=== PATIENT | female | born 1985 | race Caucasian/White ===

== ENCOUNTER 2017-08-07 08:38 | Emergency (ER) | payer BC ==
[2017-08-07] MEDS: SOD CHLORIDE 0.9% 1,000 ML IV (13:45)
[2017-08-07] MEDS: ONDANSETRON 4 MG INJ IV ×2 (13:45→14:00)
[2017-08-07] MEDS: LORAZEPAM 2 MG INJ IV (13:45)
[2017-08-07 13:53] LABS: ADD MAN DIFF? NO
[2017-08-07] MEDS: HYDROmorphONE 1 MG/ML SYG IV (14:00)
[2017-08-07 14:06] LABS: WHITE BLOOD COUNT 11.7 10^3/ul (4.8-10.8)
[2017-08-07 14:06] LABS: BASOPHIL # 0.1 10^3/ul (0.0-0.1); BASOPHILS % 0.6 % (0.0-2.0); EOSINOPHILS % 0.2 % (0.0-7.0); HEMATOCRIT 36.6 % (37.0-47.0); LYMPHOCYTES # 2.3 10^3/ul (0.8-2.9); LYMPHOCYTES % 19.9 % (15.0-51.0); MEAN CORPUSCULAR HEMOGLOBIN 24.8 pg (29.0-33.0); MEAN CORPUSCULAR HGB CONC 32.8 g/dl (32.0-37.0); MEAN CORPUSCULAR VOLUME 75.6 fl (82.0-101.0); MEAN PLATELET VOLUME 10.2 fl (7.4-10.4); MONOCYTE # 0.7 10^3/ul (0.3-0.9); MONOCYTES % 6.1 % (0.0-11.0); NEUTROPHIL # 8.5 10^3/ul (1.6-7.5); NEUTROPHILS % 72.6 % (39.0-77.0); PLATELET COUNT 333 10^3/UL (140-415); RED BLOOD COUNT 4.84 10^6/ul (4.20-5.40); RED CELL DISTRIBUTION WIDTH 15.5 % (11.5-14.5)
[2017-08-07 14:27] LABS: ALANINE AMINOTRANSFERASE 31 IU/L (13-69); ALBUMIN 4.7 g/dl (3.3-4.9); ALBUMIN/GLOBULIN RATIO 1.42; ALKALINE PHOSPHATASE 105 IU/L (42-121); ANION GAP 23 (8-16); ASPARTATE AMINO TRANSFERASE 64 IU/L (15-46); BILIRUBIN,INDIRECT 0.4 mg/dl (0-1.1); BILIRUBIN,TOTAL 0.4 mg/dl (0.2-1.3); BLOOD UREA NITROGEN 6 mg/dl (7-20); CALCIUM 9.4 mg/dl (8.4-10.2); CARBON DIOXIDE 28 mmol/L (21-31); CHLORIDE 92 mmol/L (97-110); CREATININE 0.65 mg/dl (0.44-1.00); GLUCOSE 101 mg/dl (70-220); LIPASE 245 U/L (23-300); POTASSIUM 3.6 mmol/L (3.5-5.1); SODIUM 139 mmol/L (135-144)
== END 2017-08-07 15:24 | disposition home or self-care (01) ==
LOC: E/R 08:38
DX: F10.230 Alcohol dependence with withdrawal, uncomplicated (principal); F17.210 Nicotine dependence, cigarettes, uncomplicated
CPT/HCPCS: 80053; 83690; 84703; 85025; 96374; 96375; 96376; 99284-25

== ENCOUNTER 2017-09-07 12:19 | Emergency (ER) | payer BC ==
[2017-09-07 15:14] LABS: ADD MAN DIFF? NO
[2017-09-07 15:18] LABS: WHITE BLOOD COUNT 12.2 10^3/ul (4.8-10.8)
[2017-09-07 15:18] LABS: BASOPHIL # 0.1 10^3/ul (0.0-0.1); BASOPHILS % 0.7 % (0.0-2.0); EOSINOPHILS # 0.1 10^3/ul (0.0-0.5); EOSINOPHILS % 0.8 % (0.0-7.0); HEMATOCRIT 37.8 % (37.0-47.0); HEMOGLOBIN 12.1 g/dl (12.0-16.0); LYMPHOCYTES # 2.7 10^3/ul (0.8-2.9); LYMPHOCYTES % 22.5 % (15.0-51.0); MEAN CORPUSCULAR HEMOGLOBIN 24.9 pg (29.0-33.0); MEAN CORPUSCULAR VOLUME 77.8 fl (82.0-101.0); MEAN PLATELET VOLUME 10.5 fl (7.4-10.4); MONOCYTES % 7.9 % (0.0-11.0); NEUTROPHIL # 8.2 10^3/ul (1.6-7.5); NEUTROPHILS % 67.7 % (39.0-77.0); PLATELET COUNT 340 10^3/UL (140-415); RED BLOOD COUNT 4.86 10^6/ul (4.20-5.40); RED CELL DISTRIBUTION WIDTH 15.3 % (11.5-14.5)
[2017-09-07 15:26] LABS: ADD UMIC YES; UR ASCORBIC ACID NEGATIVE (NEGATIVE); UR BACTERIA FEW /HPF (NONE SEEN); UR BILIRUBIN (Dip) NEGATIVE (NEGATIVE); UR BLOOD (Dip) 3+ mg/dL (NEGATIVE); UR CLARITY CLEAR (CLEAR); UR COLOR YELLOW (YELLOW); UR GLUCOSE (Dip) NEGATIVE (NEGATIVE); UR KETONES (Dip) NEGATIVE (NEGATIVE); UR LEUKOCYTE ESTERASE (Dip) 2+ Leu/ul (NEGATIVE); UR NITRITE (Dip) NEGATIVE (NEGATIVE); UR RBC 110 /HPF (0-5); UR SPECIFIC GRAVITY (Dip) 1.004 (1.003-1.030); UR SQUAMOUS EPITHELIAL CELL MODERATE /HPF (FEW); UR TOTAL PROTEIN (Dip) NEGATIVE (NEGATIVE); UR UROBILINOGEN (Dip) NEGATIVE (NEGATIVE); UR WBC 6 /HPF (0-5)
== END 2017-09-07 16:35 | disposition home or self-care (01) ==
LOC: FTE 12:19
DX: O20.9 Hemorrhage in early pregnancy, unspecified (principal); O23.41 Unspecified infection of urinary tract in pregnancy, first trimester; F17.210 Nicotine dependence, cigarettes, uncomplicated; Z3A.00 Weeks of gestation of pregnancy not specified
CPT/HCPCS: 36415; 76801; 76817; 81001; 84702; 85025; 86900; 86901; 99284-25

== ENCOUNTER 2018-01-10 13:07 | Emergency (ER) | payer BC ==
[2018-01-10] MEDS: SOD CHLORIDE 0.9% 1,000 ML IV (15:44)
[2018-01-10 15:46] LABS: ADD MAN DIFF? NO
[2018-01-10] MEDS: ONDANSETRON 4 MG INJ IV (15:48)
[2018-01-10 15:50] LABS: WHITE BLOOD COUNT 8.6 10^3/ul (4.8-10.8)
[2018-01-10 15:50] LABS: BASOPHIL # 0.1 10^3/ul (0.0-0.1); BASOPHILS % 0.6 % (0.0-2.0); EOSINOPHILS # 0.1 10^3/ul (0.0-0.5); EOSINOPHILS % 0.6 % (0.0-7.0); HEMOGLOBIN 9.8 g/dl (12.0-16.0); LYMPHOCYTES % 34.3 % (15.0-51.0); MEAN CORPUSCULAR HEMOGLOBIN 24.6 pg (29.0-33.0); MEAN CORPUSCULAR HGB CONC 32.7 g/dl (32.0-37.0); MEAN CORPUSCULAR VOLUME 75.2 fl (82.0-101.0); MEAN PLATELET VOLUME 9.3 fl (7.4-10.4); MONOCYTE # 0.5 10^3/ul (0.3-0.9); MONOCYTES % 6.3 % (0.0-11.0); NEUTROPHILS % 57.7 % (39.0-77.0); PLATELET COUNT 295 10^3/UL (140-415); RED BLOOD COUNT 3.99 10^6/ul (4.20-5.40); RED CELL DISTRIBUTION WIDTH 14.6 % (11.5-14.5)
[2018-01-10 15:55] LABS: ADD UMIC NO; UR ASCORBIC ACID NEGATIVE (NEGATIVE); UR BILIRUBIN (Dip) NEGATIVE (NEGATIVE); UR BLOOD (Dip) NEGATIVE (NEGATIVE); UR CLARITY CLEAR (CLEAR); UR COLOR COLORLESS (YELLOW); UR GLUCOSE (Dip) NEGATIVE (NEGATIVE); UR KETONES (Dip) NEGATIVE (NEGATIVE); UR LEUKOCYTE ESTERASE (Dip) NEGATIVE Leu/ul (NEGATIVE); UR NITRITE (Dip) NEGATIVE (NEGATIVE); UR SPECIFIC GRAVITY (Dip) 1.001 (1.003-1.030); UR TOTAL PROTEIN (Dip) NEGATIVE (NEGATIVE); UR UROBILINOGEN (Dip) NEGATIVE (NEGATIVE)
[2018-01-10 16:16] LABS: AMPHETAMINE/METHAMPHETAMINE Negative (NEGATIVE); BARBITURATES Negative (NEGATIVE); BENZODIAZEPINES Negative (NEGATIVE); CANNABINOIDS Negative (NEGATIVE); COCAINE Negative (NEGATIVE); OPIATES Negative (NEGATIVE)
[2018-01-10 16:22] LABS: ALANINE AMINOTRANSFERASE 14 IU/L (13-69); ALBUMIN 3.5 g/dl (3.3-4.9); ALBUMIN/GLOBULIN RATIO 1.06; ALKALINE PHOSPHATASE 61 IU/L (42-121); ANION GAP 15 (8-16); ASPARTATE AMINO TRANSFERASE 44 IU/L (15-46); BILIRUBIN,INDIRECT 0.4 mg/dl (0-1.1); BILIRUBIN,TOTAL 0.4 mg/dl (0.2-1.3); BLOOD UREA NITROGEN 4 mg/dl (7-20); CALCIUM 8.7 mg/dl (8.4-10.2); CARBON DIOXIDE 23 mmol/L (21-31); CHLORIDE 108 mmol/L (97-110); CREATININE 0.53 mg/dl (0.44-1.00); GLUCOSE 116 mg/dl (70-220); POTASSIUM 3.5 mmol/L (3.5-5.1); SODIUM 142 mmol/L (135-144); TOTAL PROTEIN 6.8 g/dl (6.1-8.1)
[2018-01-10] MEDS: DIPHENHYDRAMINE 50 MG INJ IV (17:12)
== END 2018-01-10 18:21 | disposition left against medical advice (07) ==
LOC: E/R 18:21
DX: O99.282 Endocrine, nutritional and metabolic diseases complicating pregnancy, second trimester (principal); O99.312 Alcohol use complicating pregnancy, second trimester; O99.89 Other specified diseases and conditions complicating pregnancy, childbirth and the puerperium; F41.9 Anxiety disorder, unspecified; F10.10 Alcohol abuse, uncomplicated; E86.0 Dehydration; Z87.891 Personal history of nicotine dependence
CPT/HCPCS: 80053; 80307; 81003; 81025; 85025; 96374; 99284-25

== ENCOUNTER 2018-01-12 09:25 | Emergency (ER) | payer BC ==
[2018-01-12] MEDS: ACETAMINOPHEN 500 MG TAB PO (10:10)
[2018-01-12 10:22] LABS: ADD MAN DIFF? NO
[2018-01-12 10:23] LABS: ADD UMIC YES; UR ASCORBIC ACID NEGATIVE (NEGATIVE); UR BACTERIA FEW /HPF (NONE SEEN); UR BILIRUBIN (Dip) NEGATIVE (NEGATIVE); UR BLOOD (Dip) 1+ mg/dL (NEGATIVE); UR CLARITY CLEAR (CLEAR); UR COLOR STRAW (YELLOW); UR GLUCOSE (Dip) NEGATIVE (NEGATIVE); UR KETONES (Dip) NEGATIVE (NEGATIVE); UR LEUKOCYTE ESTERASE (Dip) NEGATIVE Leu/ul (NEGATIVE); UR NITRITE (Dip) NEGATIVE (NEGATIVE); UR RBC 0 /HPF (0-5); UR SPECIFIC GRAVITY (Dip) 1.001 (1.003-1.030); UR TOTAL PROTEIN (Dip) NEGATIVE (NEGATIVE); UR UROBILINOGEN (Dip) NEGATIVE (NEGATIVE); UR WBC 1 /HPF (0-5)
[2018-01-12 10:25] LABS: WHITE BLOOD COUNT 8.4 10^3/ul (4.8-10.8)
[2018-01-12 10:25] LABS: BASOPHILS % 0.1 % (0.0-2.0); EOSINOPHILS # 0.1 10^3/ul (0.0-0.5); EOSINOPHILS % 1.3 % (0.0-7.0); HEMATOCRIT 28.6 % (37.0-47.0); LYMPHOCYTES # 1.6 10^3/ul (0.8-2.9); LYMPHOCYTES % 18.5 % (15.0-51.0); MEAN CORPUSCULAR HEMOGLOBIN 24.1 pg (29.0-33.0); MEAN CORPUSCULAR HGB CONC 31.5 g/dl (32.0-37.0); MEAN CORPUSCULAR VOLUME 76.5 fl (82.0-101.0); MEAN PLATELET VOLUME 9.3 fl (7.4-10.4); MONOCYTE # 0.3 10^3/ul (0.3-0.9); MONOCYTES % 3.2 % (0.0-11.0); NEUTROPHIL # 6.4 10^3/ul (1.6-7.5); NEUTROPHILS % 76.4 % (39.0-77.0); PLATELET COUNT 210 10^3/UL (140-415); RED BLOOD COUNT 3.74 10^6/ul (4.20-5.40); RED CELL DISTRIBUTION WIDTH 14.6 % (11.5-14.5)
== END 2018-01-12 12:57 | disposition home or self-care (01) ==
LOC: FTE 09:25
DX: O20.9 Hemorrhage in early pregnancy, unspecified (principal); R10.2 Pelvic and perineal pain; O99.332 Smoking (tobacco) complicating pregnancy, second trimester; F17.210 Nicotine dependence, cigarettes, uncomplicated; Z3A.16 16 weeks gestation of pregnancy
CPT/HCPCS: 36415; 76805; 81001; 84702; 85025; 86900; 86901; 99284-25

== ENCOUNTER 2018-02-27 19:19 | Outpatient (CLI) | payer OTHER ==
[2018-02-27] MEDS: LACTATED RINGER'S 1,000 ML IV* ×2 (22:32→23:02)
[2018-02-27 23:12] LABS: ALANINE AMINOTRANSFERASE 17 IU/L (13-69); ALBUMIN 3.2 g/dl (3.3-4.9); ALBUMIN/GLOBULIN RATIO 1.03; ALKALINE PHOSPHATASE 76 IU/L (42-121); ANION GAP 14 (8-16); ASPARTATE AMINO TRANSFERASE 33 IU/L (15-46); BILIRUBIN,INDIRECT 0.3 mg/dl (0-1.1); BILIRUBIN,TOTAL 0.3 mg/dl (0.2-1.3); BLOOD UREA NITROGEN 6 mg/dl (7-20); CALCIUM 8.3 mg/dl (8.4-10.2); CARBON DIOXIDE 24 mmol/L (21-31); CHLORIDE 107 mmol/L (97-110); CREATININE 0.45 mg/dl (0.44-1.00); GLUCOSE 90 mg/dl (70-220); POTASSIUM 3.9 mmol/L (3.5-5.1); SODIUM 141 mmol/L (135-144); TOTAL PROTEIN 6.3 g/dl (6.1-8.1)
[2018-02-27 23:14] LABS: ADD UMIC YES; UR ASCORBIC ACID NEGATIVE (NEGATIVE); UR BACTERIA FEW /HPF (NONE SEEN); UR BILIRUBIN (Dip) NEGATIVE (NEGATIVE); UR BLOOD (Dip) NEGATIVE (NEGATIVE); UR CLARITY CLOUDY (CLEAR); UR COLOR YELLOW (YELLOW); UR GLUCOSE (Dip) NEGATIVE (NEGATIVE); UR KETONES (Dip) NEGATIVE (NEGATIVE); UR LEUKOCYTE ESTERASE (Dip) 1+ Leu/ul (NEGATIVE); UR NITRITE (Dip) NEGATIVE (NEGATIVE); UR RBC 0 /HPF (0-5); UR SPECIFIC GRAVITY (Dip) 1.003 (1.003-1.030); UR SQUAMOUS EPITHELIAL CELL MANY /HPF (FEW); UR TOTAL PROTEIN (Dip) NEGATIVE (NEGATIVE); UR UROBILINOGEN (Dip) NEGATIVE (NEGATIVE); UR WBC 2 /HPF (0-5)
[2018-02-28 01:00] LABS: AMPHETAMINE/METHAMPHETAMINE Negative (NEGATIVE); BARBITURATES Negative (NEGATIVE); BENZODIAZEPINES Negative (NEGATIVE); CANNABINOIDS Negative (NEGATIVE); COCAINE Negative (NEGATIVE); OPIATES Negative (NEGATIVE)
== END 2018-02-28 02:30 | disposition home or self-care (01) ==
LOC: OBT 19:19 → L-D 19:20
DX: O21.0 Mild hyperemesis gravidarum (principal); Z3A.26 26 weeks gestation of pregnancy
CPT/HCPCS: 36415; 80053; 80307; 81001; 87086; 96360; 96361

== ENCOUNTER 2018-05-24 14:29 | Outpatient (CLI) | payer OTHER ==
[2018-05-24 15:51] LABS: ADD UMIC NO; UR ASCORBIC ACID NEGATIVE (NEGATIVE); UR BILIRUBIN (Dip) NEGATIVE (NEGATIVE); UR BLOOD (Dip) NEGATIVE (NEGATIVE); UR CLARITY CLEAR (CLEAR); UR COLOR YELLOW (YELLOW); UR GLUCOSE (Dip) NEGATIVE (NEGATIVE); UR KETONES (Dip) NEGATIVE (NEGATIVE); UR LEUKOCYTE ESTERASE (Dip) NEGATIVE Leu/ul (NEGATIVE); UR NITRITE (Dip) NEGATIVE (NEGATIVE); UR SPECIFIC GRAVITY (Dip) 1.013 (1.003-1.030); UR TOTAL PROTEIN (Dip) NEGATIVE (NEGATIVE); UR UROBILINOGEN (Dip) NEGATIVE (NEGATIVE)
== END 2018-05-24 16:40 | disposition home or self-care (01) ==
LOC: OBT 14:29 → L-D 14:29 → OBT 16:40
DX: O26.893 Other specified pregnancy related conditions, third trimester (principal); R10.30 Lower abdominal pain, unspecified; M54.9 Dorsalgia, unspecified; R30.0 Dysuria; Z3A.35 35 weeks gestation of pregnancy
CPT/HCPCS: 76818; 81003; 87086

== ENCOUNTER 2018-05-31 08:30 | Outpatient (CLI) | payer OTHER | END 2018-05-31 09:35 | disposition home or self-care (01) | LOC: OBT 08:30 → L-D 08:30 → OBT 09:35 | DX: O43.123 Velamentous insertion of umbilical cord, third trimester (principal); Z3A.36 36 weeks gestation of pregnancy | CPT/HCPCS: 76818 ==

== ENCOUNTER 2018-06-07 09:09 | Outpatient (CLI) | payer OTHER | END 2018-06-07 10:06 | disposition home or self-care (01) | LOC: OBT 09:09 → L-D 09:09 → OBT 10:06 | DX: O43.123 Velamentous insertion of umbilical cord, third trimester (principal); O26.893 Other specified pregnancy related conditions, third trimester; R10.2 Pelvic and perineal pain; Z3A.28 28 weeks gestation of pregnancy | CPT/HCPCS: 76818 ==

== ENCOUNTER 2018-06-11 06:34 | Outpatient (CLI) | payer OTHER | END 2018-06-11 11:15 | disposition home or self-care (01) | LOC: OBT 06:34 → L-D 06:37 → OBT 11:15 | DX: O62.9 Abnormality of forces of labor, unspecified (principal); Z3A.38 38 weeks gestation of pregnancy | CPT/HCPCS: 76815; 76818 ==

== ENCOUNTER 2018-06-12 18:57 | Inpatient (IN) | payer OTHER ==
[2018-06-12] MEDS ORDERED: LACTATED RINGER'S 1,000 ML IV (19:47)
[2018-06-12] MEDS ORDERED: OXYTOCIN 30 UNITS/LR 500 ML IV ×2 (20:00)
[2018-06-12] MEDS ORDERED: CARBOPROST 250 MCG INJ IM (20:00)
[2018-06-12] MEDS ORDERED: IBUPROFEN 600 MG TAB PO (20:00)
[2018-06-12] MEDS ORDERED: BUTORPHANOL 1 MG INJ IV (20:00)
[2018-06-12] MEDS ORDERED: MISOPROSTOL 200 MCG TAB PR (20:00)
[2018-06-12] MEDS ORDERED: METHYLERGONOVINE 0.2 MG INJ IM (20:00)
[2018-06-12] MEDS ORDERED: BUTORPHANOL 2 MG INJ IV (20:00)
[2018-06-12] MEDS ORDERED: LIDOCAINE 1% (MPF) 30 ML INJ INJ (20:00)
[2018-06-12 20:39] LABS: WHITE BLOOD COUNT 8.4 10^3/ul (4.8-10.8)
[2018-06-12 20:39] LABS: ABNORMAL IP MESSAGE 1; HEMATOCRIT 28.9 % (37.0-47.0); HEMOGLOBIN 8.9 g/dl (12.0-16.0); MEAN CORPUSCULAR HEMOGLOBIN 23.1 pg (29.0-33.0); MEAN CORPUSCULAR HGB CONC 30.8 g/dl (32.0-37.0); MEAN CORPUSCULAR VOLUME 74.9 fl (82.0-101.0); PLATELET COUNT 149 10^3/UL (140-415); RED BLOOD COUNT 3.86 10^6/ul (4.20-5.40); RED CELL DISTRIBUTION WIDTH 18.1 % (11.5-14.5)
[2018-06-12 20:55] LABS: ADD MAN DIFF? YES; MEAN PLATELET VOLUME 12.8 fl (7.4-10.4); POSITIVE DIFF @See below
[2018-06-12 21:13] LABS: AMPHETAMINE/METHAMPHETAMINE Negative (NEGATIVE); BARBITURATES Negative (NEGATIVE); BENZODIAZEPINES Negative (NEGATIVE); CANNABINOIDS Negative (NEGATIVE); COCAINE Negative (NEGATIVE); OPIATES Negative (NEGATIVE)
[2018-06-12 21:17] LABS: INR 0.86; PROTIME 11.8 Sec (11.9-14.9); PT RATIO 0.9
[2018-06-12 21:18] LABS: PARTIAL THROMBOPLASTIN TIME 25.3 Sec (23.0-35.0)
[2018-06-12 21:25] LABS: HEPATITIS B SURFACE ANTIGEN NEGATIVE (NEGATIVE)
[2018-06-12 21:35] LABS: ANISOCYTOSIS 2+ (0-0); BAND NEUTROPHILS #M 0.4 10^3/ul (0.0-0.6); BAND NEUTROPHILS % (M) 5 % (0-4); BASOPHILS % (M) 1 % (0-2); LYMPHOCYTES #M 2.1 10^3/ul (0.8-2.9); LYMPHOCYTES % (M) 26 % (15-51); MICROCYTOSIS 2+ (0-0); MONOCYTES % (M) 1 % (0-11); PLATELET ESTIMATE NORMAL; POIKILOCYTOSIS 1+ (0-0); SEG NEUT #M 5.7 10^3/ul (1.6-7.5); SEGMENTED NEUTROPHILS (M) % 67 % (39-77); SMUDGE%M 23 % (0-0)
[2018-06-12] MEDS: LACTATED RINGER'S 1,000 ML IV ×2 (21:35→21:59)
[2018-06-12] MEDS ORDERED: HYDROmorphONE 0.5 MG/0.5 ML SYG IV ×2 (22:00)
[2018-06-12] MEDS ORDERED: NALOXONE (0.4 MG/ML) INJ IV (22:00)
[2018-06-12] MEDS ORDERED: ZOLPIDEM 5 MG TAB PO (22:00)
[2018-06-12] MEDS ORDERED: KETOROLAC 30 MG INJ IV (22:00)
[2018-06-12] MEDS ORDERED: FENTAnyl 2MCG/ML-ROPIV 0.2% 100 ML BAG EPI (22:00)
[2018-06-12] MEDS ORDERED: MINERAL OIL LIGHT 10 ML VIAL TOP (22:00)
[2018-06-12] MEDS ORDERED: DIPHENHYDRAMINE 50 MG INJ IV (22:00)
[2018-06-12] MEDS ORDERED: ONDANSETRON 4 MG INJ IV (22:00)
[2018-06-13] MEDS: OXYTOCIN 30 UNITS/LR 500 ML IV ×3 (01:18→06:16)
[2018-06-13] MEDS ORDERED: LACTATED RINGER'S 1,000 ML IV* (01:20)
[2018-06-13] MEDS ORDERED: DEXTROSE 5%-LR 1,000 ML IV (01:20)
[2018-06-13] MEDS ORDERED: CARBOPROST 250 MCG INJ IM (01:30)
[2018-06-13] MEDS ORDERED: SENNA/DOCUSATE NA (8.6MG/50MG) TAB PO (01:30)
[2018-06-13] MEDS ORDERED: MISOPROSTOL 200 MCG TAB PR (01:30)
[2018-06-13] MEDS ORDERED: ONDANSETRON 4 MG INJ IV (01:30)
[2018-06-13] MEDS ORDERED: ACETAMINOPHEN 325 MG TAB PO (01:30)
[2018-06-13] MEDS ORDERED: DIBUCAINE 1% 30 GM OINT TOP (01:30)
[2018-06-13] MEDS ORDERED: LANOLIN HPA 1 PKT TOP (01:30)
[2018-06-13] MEDS ORDERED: WITCH HAZEL/GLYCERIN PAD PR (01:30)
[2018-06-13] MEDS ORDERED: DIPHENHYDRAMINE 50 MG INJ IV (01:30)
[2018-06-13] MEDS ORDERED: BENZOCAINE 20% 56 ML SPRAY TOP (01:30)
[2018-06-13] MEDS ORDERED: METHYLERGONOVINE 0.2 MG INJ IM (01:30)
[2018-06-13] MEDS ORDERED: ZOLPIDEM 5 MG TAB PO (01:30)
[2018-06-13] MEDS: IBUPROFEN 600 MG TAB PO ×3 (01:48→17:59)
[2018-06-13] MEDS ORDERED: ROPIVACAINE 0.5 % 30 ML VIAL (07:00)
[2018-06-13] MEDS: LORAZEPAM 1 MG TAB PO ×2 (09:26→21:47)
[2018-06-13 14:49] LABS: RAPID PLASMA REAGIN NONREACTIVE (NR)
[2018-06-14] MEDS: IBUPROFEN 600 MG TAB PO ×5 (05:51→23:48)
[2018-06-14 07:56] LABS: ADD MAN DIFF? NO
[2018-06-14 07:59] LABS: ABNORMAL IP MESSAGE 1; BASOPHILS % 0.4 % (0.0-2.0); EOSINOPHILS # 0.1 10^3/ul (0.0-0.5); EOSINOPHILS % 1.3 % (0.0-7.0); HEMATOCRIT 27.2 % (37.0-47.0); HEMOGLOBIN 8.3 g/dl (12.0-16.0); LYMPHOCYTES # 2.2 10^3/ul (0.8-2.9); LYMPHOCYTES % 26.8 % (15.0-51.0); MEAN CORPUSCULAR HEMOGLOBIN 23.1 pg (29.0-33.0); MEAN CORPUSCULAR HGB CONC 30.5 g/dl (32.0-37.0); MEAN CORPUSCULAR VOLUME 75.8 fl (82.0-101.0); MEAN PLATELET VOLUME 13.1 fl (7.4-10.4); MONOCYTE # 0.5 10^3/ul (0.3-0.9); MONOCYTES % 5.4 % (0.0-11.0); NEUTROPHIL # 5.4 10^3/ul (1.6-7.5); NEUTROPHILS % 65.1 % (39.0-77.0); PLATELET COUNT 138 10^3/UL (140-415); RED BLOOD COUNT 3.59 10^6/ul (4.20-5.40); RED CELL DISTRIBUTION WIDTH 18.3 % (11.5-14.5)
[2018-06-14 07:59] LABS: WHITE BLOOD COUNT 8.3 10^3/ul (4.8-10.8)
[2018-06-14 08:00] LABS: POSITIVE DIFF @See below
[2018-06-14] MEDS: LORAZEPAM 1 MG TAB PO ×2 (08:24→21:42)
[2018-06-15] MEDS: IBUPROFEN 600 MG TAB PO ×2 (06:16→11:32)
[2018-06-15] MEDS: MEASLES,MUMPS,RUBELLA VACCINE INJ SC* (09:57)
[2018-06-15] MEDS: DIPHTH/TET/ACEL PERTUSS (ADULT) 0.5 ML VIAL IM* (09:57)
[2018-06-15] MEDS: LORAZEPAM 1 MG TAB PO (10:36)
== END 2018-06-15 17:37 | disposition home or self-care (01) | DRG 807 ==
LOC: OBT 18:57 → PP1 06-13 03:12 → L-D 18:58 → OBT 19:40 → L-D 19:40
PROC: 10E0XZZ Delivery of Products of Conception, External Approach (ICD-10-PCS; principal; 2018-06-12)
DX: O69.81X0 Labor and delivery complicated by cord around neck, without compression, not applicable or unspecified (principal); Z37.0 Single live birth; O99.02 Anemia complicating childbirth; Z3A.38 38 weeks gestation of pregnancy
CPT/HCPCS: 62319; 80307; 85025; 85610; 85730; 86592; 86850; 86900; 86901; 87340

== ENCOUNTER 2018-07-15 21:17 | Emergency (ER) | payer OTHER ==
[2018-07-15 22:07] LABS: ADD MAN DIFF? NO
[2018-07-15 22:11] LABS: WHITE BLOOD COUNT 15.4 10^3/ul (4.8-10.8)
[2018-07-15 22:11] LABS: BASOPHILS % 0.3 % (0.0-2.0); EOSINOPHILS # 0.1 10^3/ul (0.0-0.5); EOSINOPHILS % 0.5 % (0.0-7.0); HEMOGLOBIN 13.6 g/dl (12.0-16.0); LYMPHOCYTES # 2.4 10^3/ul (0.8-2.9); LYMPHOCYTES % 15.4 % (15.0-51.0); MEAN CORPUSCULAR HEMOGLOBIN 23.7 pg (29.0-33.0); MEAN CORPUSCULAR HGB CONC 30.9 g/dl (32.0-37.0); MEAN CORPUSCULAR VOLUME 76.5 fl (82.0-101.0); MEAN PLATELET VOLUME 10.7 fl (7.4-10.4); MONOCYTE # 0.8 10^3/ul (0.3-0.9); NEUTROPHIL # 12.1 10^3/ul (1.6-7.5); NEUTROPHILS % 78.5 % (39.0-77.0); PLATELET COUNT 323 10^3/UL (140-415); RED BLOOD COUNT 5.75 10^6/ul (4.20-5.40); RED CELL DISTRIBUTION WIDTH 16.3 % (11.5-14.5)
[2018-07-15 22:20] LABS: ADD UMIC YES; UR ASCORBIC ACID NEGATIVE (NEGATIVE); UR BACTERIA FEW /HPF (NONE SEEN); UR BILIRUBIN (Dip) NEGATIVE (NEGATIVE); UR BLOOD (Dip) NEGATIVE (NEGATIVE); UR CLARITY SLIGHTLY CLOUDY (CLEAR); UR COLOR YELLOW (YELLOW); UR GLUCOSE (Dip) NEGATIVE (NEGATIVE); UR KETONES (Dip) NEGATIVE (NEGATIVE); UR LEUKOCYTE ESTERASE (Dip) 2+ Leu/ul (NEGATIVE); UR NITRITE (Dip) NEGATIVE (NEGATIVE); UR RBC 2 /HPF (0-5); UR SPECIFIC GRAVITY (Dip) 1.018 (1.003-1.030); UR SQUAMOUS EPITHELIAL CELL FEW /HPF (FEW); UR TOTAL PROTEIN (Dip) 1+ mg/dl (NEGATIVE); UR UROBILINOGEN (Dip) NEGATIVE (NEGATIVE); UR WBC 14 /HPF (0-5)
[2018-07-15 22:26] LABS: ALANINE AMINOTRANSFERASE 14 IU/L (13-69); ALBUMIN 4.9 g/dl (3.3-4.9); ALBUMIN/GLOBULIN RATIO 1.19; ALKALINE PHOSPHATASE 99 IU/L (42-121); ANION GAP 18 (5-13); ASPARTATE AMINO TRANSFERASE 26 IU/L (15-46); BILIRUBIN,INDIRECT 0.3 mg/dl (0-1.1); BILIRUBIN,TOTAL 0.3 mg/dl (0.2-1.3); BLOOD UREA NITROGEN 12 mg/dl (7-20); CALCIUM 10.1 mg/dl (8.4-10.2); CARBON DIOXIDE 28 mmol/L (21-31); CHLORIDE 100 mmol/L (97-110); CREATININE 0.75 mg/dl (0.44-1.00); Estimated GFR > 60 mL/min (>60); GLUCOSE 114 mg/dl (70-220); LIPASE 119 U/L (23-300); POTASSIUM 3.9 mmol/L (3.5-5.1); SODIUM 146 mmol/L (135-144)
[2018-07-15] MEDS: KETOROLAC 15 MG INJ IV (22:27)
[2018-07-15] MEDS: ONDANSETRON 4 MG INJ IV (22:27)
[2018-07-15] MEDS: SOD CHLORIDE 0.9% 1,000 ML IV (23:33)
[2018-07-15] MEDS: CEFTRIAXONE 1 GM/50 ML (PMX) 50 ML IVPB (23:39)
== END 2018-07-16 01:30 | disposition home or self-care (01) ==
LOC: E/R 07-16 01:30
DX: N39.0 Urinary tract infection, site not specified (principal)
CPT/HCPCS: 36415; 76705; 80053; 81001; 81025; 83690; 85025; 87086; 96374; 96375; 99285-25

== ENCOUNTER 2018-07-31 18:30 | Emergency (ER) | payer OTHER ==
[2018-07-31 23:14] LABS: URINE BLOOD (Dip) POC 3+ (NEGATIVE); URINE GLUCOSE (Dip) POC Negative (NEGATIVE); URINE KETONES (Dip) POC Negative (NEGATIVE); URINE LEUKOCYTE EST (Dip) POC Trace (NEGATIVE); URINE NITRITE (Dip) POC Negative (NEGATIVE); URINE TOTAL PROTEIN POC 1+ (NEGATIVE)
[2018-07-31 23:37] LABS: ADD MAN DIFF? NO
[2018-07-31 23:44] LABS: BASOPHIL # 0.1 10^3/ul (0.0-0.1); BASOPHILS % 0.5 % (0.0-2.0); EOSINOPHILS # 0.1 10^3/ul (0.0-0.5); EOSINOPHILS % 1.1 % (0.0-7.0); HEMATOCRIT 43.4 % (37.0-47.0); HEMOGLOBIN 13.6 g/dl (12.0-16.0); LYMPHOCYTES # 3.8 10^3/ul (0.8-2.9); LYMPHOCYTES % 41.6 % (15.0-51.0); MEAN CORPUSCULAR HGB CONC 31.3 g/dl (32.0-37.0); MEAN CORPUSCULAR VOLUME 76.7 fl (82.0-101.0); MEAN PLATELET VOLUME 10.1 fl (7.4-10.4); MONOCYTE # 0.4 10^3/ul (0.3-0.9); MONOCYTES % 4.8 % (0.0-11.0); NEUTROPHIL # 4.7 10^3/ul (1.6-7.5); NEUTROPHILS % 51.3 % (39.0-77.0); PLATELET COUNT 379 10^3/UL (140-415); RED BLOOD COUNT 5.66 10^6/ul (4.20-5.40); RED CELL DISTRIBUTION WIDTH 16.1 % (11.5-14.5)
[2018-07-31 23:44] LABS: WHITE BLOOD COUNT 9.2 10^3/ul (4.8-10.8)
[2018-07-31] MEDS: SOD CHLORIDE 0.9% 1,000 ML IV (23:54)
[2018-07-31 23:59] LABS: ADD UMIC YES; AMPHETAMINE/METHAMPHETAMINE Negative (NEGATIVE); BARBITURATES Negative (NEGATIVE); BENZODIAZEPINES Negative (NEGATIVE); CANNABINOIDS Negative (NEGATIVE); COCAINE Negative (NEGATIVE); OPIATES Negative (NEGATIVE); UR AMORPHOUS CRYSTAL FEW /HPF (NONE SEEN); UR ASCORBIC ACID NEGATIVE (NEGATIVE); UR BACTERIA FEW /HPF (NONE SEEN); UR BILIRUBIN (Dip) NEGATIVE (NEGATIVE); UR BLOOD (Dip) 3+ mg/dL (NEGATIVE); UR CLARITY CLOUDY (CLEAR); UR COLOR YELLOW (YELLOW); UR GLUCOSE (Dip) NEGATIVE (NEGATIVE); UR KETONES (Dip) NEGATIVE (NEGATIVE); UR LEUKOCYTE ESTERASE (Dip) TRACE Leu/ul (NEGATIVE); UR MUCUS FEW /HPF (NONE SEEN); UR NITRITE (Dip) NEGATIVE (NEGATIVE); UR RBC 1 /HPF (0-5); UR SPECIFIC GRAVITY (Dip) 1.004 (1.003-1.030); UR SQUAMOUS EPITHELIAL CELL FEW /HPF (FEW); UR TOTAL PROTEIN (Dip) NEGATIVE (NEGATIVE); UR UROBILINOGEN (Dip) NEGATIVE (NEGATIVE); UR WBC 6 /HPF (0-5)
[2018-08-01 00:02] LABS: ALANINE AMINOTRANSFERASE 13 IU/L (13-69); ALBUMIN 4.9 g/dl (3.3-4.9); ALKALINE PHOSPHATASE 107 IU/L (42-121); ANION GAP 15 (5-13); ASPARTATE AMINO TRANSFERASE 32 IU/L (15-46); BILIRUBIN,INDIRECT 0.2 mg/dl (0-1.1); BILIRUBIN,TOTAL 0.2 mg/dl (0.2-1.3); BLOOD UREA NITROGEN 5 mg/dl (7-20); CALCIUM 9.6 mg/dl (8.4-10.2); CARBON DIOXIDE 25 mmol/L (21-31); CHLORIDE 102 mmol/L (97-110); CREATININE 0.58 mg/dl (0.44-1.00); Estimated GFR > 60 mL/min (>60); GLUCOSE 108 mg/dl (70-220); LIPASE 106 U/L (23-300); SODIUM 142 mmol/L (135-144); TOTAL PROTEIN 8.4 g/dl (6.1-8.1)
[2018-08-01 00:03] LABS: ACETAMINOPHEN < 10.0 ug/ml (10.0-30.0); SALICYLATE < 1.0 mg/dl (5.0-30.0)
[2018-08-01 00:14] LABS: B-TYPE NATRIURETIC PEPTIDE < 11 PG/ML (0-125); TROPONIN-I < 0.012 ng/ml (0.000-0.120)
[2018-08-01] MEDS: LORAZEPAM 1 MG TAB PO (02:22)
== END 2018-08-01 02:35 | disposition home or self-care (01) ==
LOC: E/R 08-01 02:35
DX: F10.920 Alcohol use, unspecified with intoxication, uncomplicated (principal); F17.210 Nicotine dependence, cigarettes, uncomplicated; R40.2252 Coma scale, best verbal response, oriented, at arrival to emergency department; R40.2362 Coma scale, best motor response, obeys commands, at arrival to emergency department; R40.2142 Coma scale, eyes open, spontaneous, at arrival to emergency department
CPT/HCPCS: 36415; 71045; 80053; 80307; 81001; 81003; 81025; 83690; 83880; 84484; 85025; 93005; 96360; 99285-25

== ENCOUNTER 2018-08-07 18:47 | Emergency (ER) | payer OTHER ==
[2018-08-08] MEDS: LORAZEPAM 1 MG TAB PO (04:04)
== END 2018-08-08 04:10 | disposition home or self-care (01) ==
LOC: E/R 18:47
DX: F10.920 Alcohol use, unspecified with intoxication, uncomplicated (principal)
CPT/HCPCS: 71045; 80307; 81025; 93005; 99284-25

== ENCOUNTER 2018-08-15 21:19 | Emergency (ER) | payer OTHER ==
[2018-08-16 02:30] LABS: ADD MAN DIFF? NO
[2018-08-16] MEDS: SOD CHLORIDE 0.9% 1,000 ML IV (02:31)
[2018-08-16 02:32] LABS: BASOPHILS % 0.5 % (0.0-2.0); EOSINOPHILS # 0.1 10^3/ul (0.0-0.5); EOSINOPHILS % 1.3 % (0.0-7.0); HEMATOCRIT 40.9 % (37.0-47.0); HEMOGLOBIN 12.8 g/dl (12.0-16.0); LYMPHOCYTES # 3.4 10^3/ul (0.8-2.9); LYMPHOCYTES % 45.8 % (15.0-51.0); MEAN CORPUSCULAR HEMOGLOBIN 24.4 pg (29.0-33.0); MEAN CORPUSCULAR HGB CONC 31.3 g/dl (32.0-37.0); MEAN CORPUSCULAR VOLUME 77.9 fl (82.0-101.0); MEAN PLATELET VOLUME 9.7 fl (7.4-10.4); MONOCYTE # 0.3 10^3/ul (0.3-0.9); MONOCYTES % 4.4 % (0.0-11.0); NEUTROPHIL # 3.5 10^3/ul (1.6-7.5); NEUTROPHILS % 47.6 % (39.0-77.0); PLATELET COUNT 353 10^3/UL (140-415); RED BLOOD COUNT 5.25 10^6/ul (4.20-5.40)
[2018-08-16 02:32] LABS: WHITE BLOOD COUNT 7.5 10^3/ul (4.8-10.8)
[2018-08-16] MEDS: LORAZEPAM 2 MG INJ IV (02:32)
[2018-08-16] MEDS: ONDANSETRON 4 MG INJ IV (02:32)
[2018-08-16 02:51] LABS: ALANINE AMINOTRANSFERASE 12 IU/L (13-69); ALBUMIN 4.7 g/dl (3.3-4.9); ALBUMIN/GLOBULIN RATIO 1.34; ALKALINE PHOSPHATASE 95 IU/L (42-121); ANION GAP 16 (5-13); ASPARTATE AMINO TRANSFERASE 33 IU/L (15-46); BILIRUBIN,INDIRECT 0.3 mg/dl (0-1.1); BILIRUBIN,TOTAL 0.3 mg/dl (0.2-1.3); BLOOD UREA NITROGEN 5 mg/dl (7-20); CALCIUM 9.4 mg/dl (8.4-10.2); CARBON DIOXIDE 25 mmol/L (21-31); CHLORIDE 102 mmol/L (97-110); CREATININE 0.61 mg/dl (0.44-1.00); Estimated GFR > 60 mL/min (>60); GLUCOSE 98 mg/dl (70-220); POTASSIUM 4.2 mmol/L (3.5-5.1); SODIUM 143 mmol/L (135-144); TOTAL PROTEIN 8.2 g/dl (6.1-8.1)
== END 2018-08-16 04:05 | disposition home or self-care (01) ==
LOC: E/R 21:19
DX: F10.10 Alcohol abuse, uncomplicated (principal)
CPT/HCPCS: 36415; 80053; 85025; 96374; 96375; 99284-25

== ENCOUNTER 2018-08-22 11:43 | Emergency (ER) | payer OTHER | END 2018-08-22 17:39 | disposition home or self-care (01) | LOC: E/R 11:43 | DX: F10.920 Alcohol use, unspecified with intoxication, uncomplicated (principal) | CPT/HCPCS: 99283; Z7502 ==

== ENCOUNTER 2018-11-06 20:34 | Emergency (ER) | payer OTHER ==
[2018-11-06 21:56] LABS: ADD MAN DIFF? NO
[2018-11-06] MEDS: SOD CHLORIDE 0.9% 1,000 ML IV (21:58)
[2018-11-06] MEDS: LORAZEPAM 2 MG INJ IV (21:58)
[2018-11-06 22:03] LABS: WHITE BLOOD COUNT 7.6 10^3/ul (4.8-10.8)
[2018-11-06 22:03] LABS: BASOPHIL # 0.1 10^3/ul (0.0-0.1); BASOPHILS % 0.7 % (0.0-2.0); EOSINOPHILS % 0.1 % (0.0-7.0); HEMATOCRIT 40.8 % (37.0-47.0); LYMPHOCYTES # 2.2 10^3/ul (0.8-2.9); LYMPHOCYTES % 29.2 % (15.0-51.0); MEAN CORPUSCULAR HEMOGLOBIN 24.6 pg (29.0-33.0); MEAN CORPUSCULAR HGB CONC 31.9 g/dl (32.0-37.0); MEAN CORPUSCULAR VOLUME 77.1 fl (82.0-101.0); MEAN PLATELET VOLUME 10.6 fl (7.4-10.4); MONOCYTE # 0.7 10^3/ul (0.3-0.9); MONOCYTES % 9.5 % (0.0-11.0); NEUTROPHIL # 4.6 10^3/ul (1.6-7.5); NEUTROPHILS % 60.1 % (39.0-77.0); PLATELET COUNT 296 10^3/UL (140-415); RED BLOOD COUNT 5.29 10^6/ul (4.20-5.40); RED CELL DISTRIBUTION WIDTH 13.9 % (11.5-14.5)
[2018-11-06 22:20] LABS: ADD UMIC YES; UR ASCORBIC ACID NEGATIVE (NEGATIVE); UR BACTERIA FEW /HPF (NONE SEEN); UR BILIRUBIN (Dip) NEGATIVE (NEGATIVE); UR BLOOD (Dip) 2+ mg/dL (NEGATIVE); UR CLARITY CLOUDY (CLEAR); UR COLOR YELLOW (YELLOW); UR GLUCOSE (Dip) NEGATIVE (NEGATIVE); UR HYALINE CAST FEW /HPF (NONE SEEN); UR KETONES (Dip) NEGATIVE (NEGATIVE); UR LEUKOCYTE ESTERASE (Dip) TRACE Leu/ul (NEGATIVE); UR MUCUS FEW /HPF (NONE SEEN); UR NITRITE (Dip) NEGATIVE (NEGATIVE); UR RBC 3 /HPF (0-5); UR SPECIFIC GRAVITY (Dip) 1.006 (1.003-1.030); UR SQUAMOUS EPITHELIAL CELL MODERATE /HPF (FEW); UR TOTAL PROTEIN (Dip) 1+ mg/dl (NEGATIVE); UR UROBILINOGEN (Dip) NEGATIVE (NEGATIVE); UR WBC 10 /HPF (0-5)
[2018-11-06 22:23] LABS: ALANINE AMINOTRANSFERASE 13 IU/L (13-69); ALBUMIN 4.6 g/dl (3.3-4.9); ALBUMIN/GLOBULIN RATIO 1.27; ALKALINE PHOSPHATASE 117 IU/L (42-121); ANION GAP 14 (5-13); ASPARTATE AMINO TRANSFERASE 25 IU/L (15-46); BILIRUBIN,INDIRECT 0.5 mg/dl (0-1.1); BILIRUBIN,TOTAL 0.5 mg/dl (0.2-1.3); BLOOD UREA NITROGEN 4 mg/dl (7-20); CARBON DIOXIDE 24 mmol/L (21-31); CHLORIDE 103 mmol/L (97-110); CREATININE 0.58 mg/dl (0.44-1.00); Estimated GFR > 60 mL/min (>60); GLUCOSE 101 mg/dl (70-220); POTASSIUM 4.1 mmol/L (3.5-5.1); SODIUM 141 mmol/L (135-144); TOTAL PROTEIN 8.2 g/dl (6.1-8.1)
[2018-11-06 22:26] LABS: ACETAMINOPHEN < 10.0 ug/ml (10.0-30.0); SALICYLATE < 1.0 mg/dl (5.0-30.0)
[2018-11-06 22:29] LABS: AMPHETAMINE/METHAMPHETAMINE Negative (NEGATIVE); BARBITURATES Negative (NEGATIVE); BENZODIAZEPINES Negative (NEGATIVE); CANNABINOIDS Negative (NEGATIVE); COCAINE Negative (NEGATIVE); OPIATES Negative (NEGATIVE)
[2018-11-06 22:34] LABS: LIPASE 75 U/L (23-300)
== END 2018-11-07 00:48 | disposition home or self-care (01) ==
LOC: E/R 11-07 00:48
DX: F10.230 Alcohol dependence with withdrawal, uncomplicated (principal); F17.210 Nicotine dependence, cigarettes, uncomplicated
CPT/HCPCS: 36415; 80053; 80307; 81001; 83690; 84703; 85025; 96374; 99284-25

== ENCOUNTER 2018-11-17 11:38 | Emergency (ER) | payer OTHER | END 2018-11-17 17:10 | disposition home or self-care (01) | LOC: E/R 11:38 | DX: F10.10 Alcohol abuse, uncomplicated (principal); F17.210 Nicotine dependence, cigarettes, uncomplicated | CPT/HCPCS: 99283; Z7502 ==

== ENCOUNTER 2018-11-25 17:58 | Emergency (ER) | payer OTHER ==
[2018-11-25] MEDS: LORAZEPAM 2 MG INJ IM (21:38)
== END 2018-11-25 22:42 | disposition home or self-care (01) ==
LOC: E/R 17:58
DX: F10.230 Alcohol dependence with withdrawal, uncomplicated (principal); F17.210 Nicotine dependence, cigarettes, uncomplicated
CPT/HCPCS: 81025; 96372; 99284-25

== ENCOUNTER 2018-12-24 20:02 | Emergency (ER) | payer OTHER ==
[2018-12-24 23:00] LABS: ADD MAN DIFF? NO
[2018-12-24 23:02] LABS: BASOPHIL # 0.1 10^3/ul (0.0-0.1); BASOPHILS % 0.5 % (0.0-2.0); EOSINOPHILS % 0.2 % (0.0-7.0); HEMATOCRIT 45.3 % (37.0-47.0); HEMOGLOBIN 14.7 g/dl (12.0-16.0); LYMPHOCYTES # 4.4 10^3/ul (0.8-2.9); LYMPHOCYTES % 31.9 % (15.0-51.0); MEAN CORPUSCULAR HEMOGLOBIN 24.9 pg (29.0-33.0); MEAN CORPUSCULAR HGB CONC 32.5 g/dl (32.0-37.0); MEAN CORPUSCULAR VOLUME 76.6 fl (82.0-101.0); MEAN PLATELET VOLUME 9.8 fl (7.4-10.4); MONOCYTE # 0.8 10^3/ul (0.3-0.9); MONOCYTES % 5.6 % (0.0-11.0); NEUTROPHIL # 8.5 10^3/ul (1.6-7.5); NEUTROPHILS % 61.2 % (39.0-77.0); PLATELET COUNT 420 10^3/UL (140-415); RED BLOOD COUNT 5.91 10^6/ul (4.20-5.40); RED CELL DISTRIBUTION WIDTH 14.7 % (11.5-14.5)
[2018-12-24 23:02] LABS: WHITE BLOOD COUNT 13.8 10^3/ul (4.8-10.8)
[2018-12-24 23:07] LABS: ADD UMIC YES; UR ASCORBIC ACID NEGATIVE (NEGATIVE); UR BILIRUBIN (Dip) NEGATIVE (NEGATIVE); UR BLOOD (Dip) NEGATIVE (NEGATIVE); UR CLARITY CLEAR (CLEAR); UR COLOR YELLOW (YELLOW); UR GLUCOSE (Dip) NEGATIVE (NEGATIVE); UR KETONES (Dip) NEGATIVE (NEGATIVE); UR LEUKOCYTE ESTERASE (Dip) NEGATIVE Leu/ul (NEGATIVE); UR NITRITE (Dip) NEGATIVE (NEGATIVE); UR RBC 1 /HPF (0-5); UR SPECIFIC GRAVITY (Dip) 1.006 (1.003-1.030); UR SQUAMOUS EPITHELIAL CELL FEW /HPF (FEW); UR TOTAL PROTEIN (Dip) 1+ mg/dl (NEGATIVE); UR UROBILINOGEN (Dip) NEGATIVE (NEGATIVE); UR WBC 0 /HPF (0-5)
[2018-12-24] MEDS: ONDANSETRON 4 MG INJ IV (23:08)
[2018-12-24] MEDS: SOD CHLORIDE 0.9% 1,000 ML IV (23:08)
[2018-12-24] MEDS: LORAZEPAM 2 MG INJ IV (23:08)
[2018-12-24 23:20] LABS: AMPHETAMINE/METHAMPHETAMINE Negative (NEGATIVE); BARBITURATES Negative (NEGATIVE); BENZODIAZEPINES Negative (NEGATIVE); CANNABINOIDS Negative (NEGATIVE); COCAINE Negative (NEGATIVE); OPIATES Negative (NEGATIVE)
[2018-12-24 23:27] LABS: ALANINE AMINOTRANSFERASE 9 IU/L (13-69); ALBUMIN 4.5 g/dl (3.3-4.9); ALBUMIN/GLOBULIN RATIO 1.18; ALKALINE PHOSPHATASE 98 IU/L (42-121); ANION GAP 14 (5-13); ASPARTATE AMINO TRANSFERASE 21 IU/L (15-46); BILIRUBIN,INDIRECT 0.4 mg/dl (0-1.1); BILIRUBIN,TOTAL 0.4 mg/dl (0.2-1.3); BLOOD UREA NITROGEN 6 mg/dl (7-20); CALCIUM 9.2 mg/dl (8.4-10.2); CARBON DIOXIDE 29 mmol/L (21-31); CHLORIDE 101 mmol/L (97-110); CREATININE 0.61 mg/dl (0.44-1.00); Estimated GFR > 60 mL/min (>60); GLUCOSE 105 mg/dl (70-220); POTASSIUM 4.3 mmol/L (3.5-5.1); SODIUM 144 mmol/L (135-144); TOTAL PROTEIN 8.3 g/dl (6.1-8.1)
[2018-12-24 23:29] LABS: ACETAMINOPHEN < 10.0 ug/ml (10.0-30.0); SALICYLATE < 1.0 mg/dl (5.0-30.0)
== END 2018-12-25 02:16 | disposition home or self-care (01) ==
LOC: E/R 12-25 02:16
DX: F10.230 Alcohol dependence with withdrawal, uncomplicated (principal); F17.210 Nicotine dependence, cigarettes, uncomplicated; R07.9 Chest pain, unspecified
CPT/HCPCS: 36415; 80053; 80307; 81001; 85025; 93005; 96361; 96374; 96375; 99284-25

== ENCOUNTER 2018-12-31 10:43 | Emergency (ER) | payer OTHER ==
[2018-12-31] MEDS: SOD CHLORIDE 0.9% 500 ML IV (11:26)
[2018-12-31] MEDS: LORAZEPAM 2 MG INJ IV (11:26)
== END 2018-12-31 12:44 | disposition home or self-care (01) ==
LOC: E/R 10:43
DX: F10.10 Alcohol abuse, uncomplicated (principal); F17.210 Nicotine dependence, cigarettes, uncomplicated
CPT/HCPCS: 96361; 96374; 99284-25

== ENCOUNTER 2019-01-09 08:47 | Emergency (ER) | payer OTHER ==
[2019-01-09 10:26] LABS: ADD MAN DIFF? NO
[2019-01-09] MEDS: ONDANSETRON 4 MG INJ IV (10:31)
[2019-01-09] MEDS: SOD CHLORIDE 0.9% 1,000 ML IV (10:31)
[2019-01-09 10:33] LABS: WHITE BLOOD COUNT 11.4 10^3/ul (4.8-10.8)
[2019-01-09 10:33] LABS: BASOPHIL # 0.1 10^3/ul (0.0-0.1); BASOPHILS % 0.4 % (0.0-2.0); EOSINOPHILS # 0.1 10^3/ul (0.0-0.5); EOSINOPHILS % 0.6 % (0.0-7.0); HEMATOCRIT 44.1 % (37.0-47.0); HEMOGLOBIN 14.3 g/dl (12.0-16.0); LYMPHOCYTES # 2.1 10^3/ul (0.8-2.9); LYMPHOCYTES % 18.6 % (15.0-51.0); MEAN CORPUSCULAR HEMOGLOBIN 25.7 pg (29.0-33.0); MEAN CORPUSCULAR HGB CONC 32.4 g/dl (32.0-37.0); MEAN CORPUSCULAR VOLUME 79.3 fl (82.0-101.0); MEAN PLATELET VOLUME 10.3 fl (7.4-10.4); MONOCYTE # 0.7 10^3/ul (0.3-0.9); MONOCYTES % 6.5 % (0.0-11.0); NEUTROPHIL # 8.4 10^3/ul (1.6-7.5); NEUTROPHILS % 73.5 % (39.0-77.0); PLATELET COUNT 268 10^3/UL (140-415); RED BLOOD COUNT 5.56 10^6/ul (4.20-5.40); RED CELL DISTRIBUTION WIDTH 14.2 % (11.5-14.5)
[2019-01-09 10:35] LABS: ADD UMIC YES; UR ASCORBIC ACID NEGATIVE (NEGATIVE); UR BILIRUBIN (Dip) NEGATIVE (NEGATIVE); UR BLOOD (Dip) 2+ mg/dL (NEGATIVE); UR CLARITY CLEAR (CLEAR); UR COLOR COLORLESS (YELLOW); UR GLUCOSE (Dip) NEGATIVE (NEGATIVE); UR KETONES (Dip) NEGATIVE (NEGATIVE); UR LEUKOCYTE ESTERASE (Dip) NEGATIVE Leu/ul (NEGATIVE); UR NITRITE (Dip) NEGATIVE (NEGATIVE); UR RBC 0 /HPF (0-5); UR SPECIFIC GRAVITY (Dip) 1.001 (1.003-1.030); UR TOTAL PROTEIN (Dip) NEGATIVE (NEGATIVE); UR UROBILINOGEN (Dip) NEGATIVE (NEGATIVE); UR WBC 0 /HPF (0-5)
[2019-01-09 10:43] LABS: ALANINE AMINOTRANSFERASE 13 IU/L (13-69); ALBUMIN 4.7 g/dl (3.3-4.9); ALKALINE PHOSPHATASE 101 IU/L (42-121); ANION GAP 16 (5-13); ASPARTATE AMINO TRANSFERASE 41 IU/L (15-46); BILIRUBIN,INDIRECT 0.5 mg/dl (0-1.1); BILIRUBIN,TOTAL 0.5 mg/dl (0.2-1.3); BLOOD UREA NITROGEN 5 mg/dl (7-20); CALCIUM 9.1 mg/dl (8.4-10.2); CARBON DIOXIDE 25 mmol/L (21-31); CHLORIDE 100 mmol/L (97-110); CREATININE 0.53 mg/dl (0.44-1.00); Estimated GFR > 60 mL/min (>60); GLUCOSE 113 mg/dl (70-220); POTASSIUM 4.3 mmol/L (3.5-5.1); SODIUM 141 mmol/L (135-144); TOTAL PROTEIN 8.3 g/dl (6.1-8.1)
== END 2019-01-09 11:29 | disposition home or self-care (01) ==
LOC: E/R 08:47
DX: F10.920 Alcohol use, unspecified with intoxication, uncomplicated (principal); Z87.891 Personal history of nicotine dependence
CPT/HCPCS: 80053; 80307; 81001; 85025; 96361; 96374; 99284-25

== ENCOUNTER 2019-01-19 12:48 | Emergency (ER) | payer OTHER ==
[2019-01-19] MEDS: LORAZEPAM 2 MG INJ IV (15:25)
[2019-01-19] MEDS: SOD CHLORIDE 0.9% 1,000 ML IV (15:25)
[2019-01-19] MEDS: THIAMINE 100 MG TAB PO (15:25)
[2019-01-19] MEDS: FOLIC ACID 1 MG TAB PO (15:25)
== END 2019-01-19 17:19 | disposition home or self-care (01) ==
LOC: E/R 12:48
DX: F10.10 Alcohol abuse, uncomplicated (principal); R40.2142 Coma scale, eyes open, spontaneous, at arrival to emergency department; R40.2362 Coma scale, best motor response, obeys commands, at arrival to emergency department; R40.2242 Coma scale, best verbal response, confused conversation, at arrival to emergency department; F17.210 Nicotine dependence, cigarettes, uncomplicated; E86.0 Dehydration
CPT/HCPCS: 81025; 96361; 96374; 99284-25

== ENCOUNTER 2019-01-27 12:58 | Emergency (ER) | payer OTHER | END 2019-01-27 13:59 | disposition home or self-care (01) | LOC: E/R 12:58 | DX: F10.129 Alcohol abuse with intoxication, unspecified (principal); Z87.891 Personal history of nicotine dependence | CPT/HCPCS: 99282; Z7502 ==

== ENCOUNTER 2019-02-11 15:51 | Emergency (ER) | payer OTHER ==
[2019-02-11] MEDS: LORAZEPAM 1 MG TAB PO (16:55)
== END 2019-02-11 18:21 | disposition home or self-care (01) ==
LOC: E/R 15:51
DX: F10.920 Alcohol use, unspecified with intoxication, uncomplicated (principal)
CPT/HCPCS: 81025; 99283

== ENCOUNTER 2019-03-14 19:43 | Emergency (ER) | payer OTHER | END 2019-03-14 21:25 | disposition home or self-care (01) | LOC: E/R 19:43 | DX: F10.920 Alcohol use, unspecified with intoxication, uncomplicated (principal); Z87.891 Personal history of nicotine dependence | CPT/HCPCS: 93005; 99283-25 ==